=== PATIENT | female | born 1945 | race Caucasian/White ===

== ENCOUNTER 2022-02-23 08:29 | Outpatient (CLI) | payer MEDICARE, SELFPAY ==
--- NOTE | ~2022-02-23 | XR_ITS ---
EXAMINATION: XR lg joint inject/asp w image DATE: 02/23/2022 09:35 INDICATION: Left hip pain TECHNIQUE: A time-out was performed to verify the patient's name, date of , and procedure to b e performed. The procedure including the risks, benefits, and alternatives was discussed with the pat ient. Risks discussed included bleeding and infection. The patient understood the risks and agreed to proceed. The skin overlying the left hip joint was prepped and draped in usual sterile fashion. An esthetic was administered with 1% lidocaine subcutaneously. A 22 G needle was advanced under fluoros copic guidance into the joint. Due to patient's reported contrast allergy a small amount of air was i njected into the joint space confirming intra-articular needle position. Subsequently, injectate cons isting of 7 mm of a 5:2 mixture of 1% lidocaine: 10 mg/mL Kenalog for a total dose of 20 mg Kenalog w as instilled. The needle was removed and the entry site was cleaned and dressed. There were no immed iate complications. Fluoroscopy exposure time was 0.1 minutes. The total number of images was 2. FINDINGS: Real-time fluoroscopy demonstrates the needle in the left hip joint. Patient's pain prior t o procedure:05/25. Patient's pain following the procedure: 04/24. IMPRESSION: 1. Successful left hip joint injection of local anesthetic and steroid with minimal decrease in the p atient's presenting pain. Reviewed, dictated and finalized at location A. IMPRESSION: 1. Successful left hip joint injection of local anesthetic and steroid with min imal decrease in the patient's presenting pain.
== END 2022-02-23 08:30 | disposition home or self-care (01) ==
PROVIDERS: PCP Internal Medicine; Visit Provider Nurse Practitioner
DX: M25.552 Pain in left hip (principal)
CPT/HCPCS: 20610; 77002; J3301; Q9966

== ENCOUNTER → 2022-04-01 16:10 | Outpatient (CLI) | payer MEDICARE, SELFPAY ==
--- NOTE | ~2022-04-01 | MR_ITS ---
EXAMINATION: MR lumbar spine wo con DATE: 04/01/2022 16:46 INDICATION: Low back pain, unspecified. TECHNIQUE: Magnetic resonance imaging (MRI) of the lumbar spine was performed without intravenous con trast. Sequences included sagittal T2-weighted FSE, sagittal T2-weighted FS FSE, sagittal T1-weighted FSE, and axial T2-weighted FSE. COMPARISON: Lumbar spine radiographs 03/23/2022 FINDINGS: There is 23 degrees levoscoliosis of lumbar spine. There is 4 mm retrolisthesis of L1 on L2 and 3 mm retrolisthesis of L2 on L3 and L3 on L4. Vertebral body heights are normal. There is severe ly decreased disc height from T10-T11 through L2-L3, moderately decreased disc height at L3-L4 and L4 -L5, and severely decreased disc height at L5-S1 with endplate remodeling. There is interbody fusion at T12-L1. The distal spinal cord signal intensity is normal. The conus medullaris is at T12-L1. The following disc levels are specifically discussed: L1-L2: There is a right foraminal protrusion. There is mild bilateral facet joint osteoarthritis. The re is moderate right and mild left neural foraminal stenosis. There is mild central canal stenosis. L2-L3: The disc is bulging. There is moderate bilateral facet joint osteoarthritis. There is moderate right and mild left neural foraminal stenosis. There is mild central canal stenosis. L3-L4: The disc is bulging. There is mild right and severe left facet joint osteoarthritis. There is mild bilateral neural foraminal stenosis. There is mild central canal stenosis. L4-L5: The disc is bulging. There is severe bilateral facet joint osteoarthritis. There is mild bilat eral neural foraminal stenosis. There is mild central canal stenosis. L5-S1: The disc is bulging. There is severe bilateral facet joint osteoarthritis. There is mild bilat eral neural foraminal stenosis. There is mild central canal stenosis. IMPRESSION: 1. Severe lumbar spondylosis. 2. Lumbar levoscoliosis. Reviewed, dictated and finalized at location B.
== END ==
PROVIDERS: PCP Internal Medicine; Visit Provider Nurse Practitioner
DX: M47.896 Other spondylosis, lumbar region (principal)
CPT/HCPCS: 72148

== ENCOUNTER 2024-03-30 08:53 | Outpatient (CLI) | payer MEDICARE, SELFPAY ==
--- NOTE | ~2024-03-30 | MR_ITS ---
Procedure: MR thoracic spine wo con Ordering provider: Willy Nielsen, History: . chronic mid-back pain worsening last 3wks, T12-L1 fusion, . Comparison: None. Technique: MRI thoracic spine without contrast. FINDINGS: SPINAL CORD: Normal. VERTEBRAL BODIES: Normal height and alignment. No compression fracture. Normal marrow signal. Levosco liosis of the thoracolumbar area. Kyphosis is seen in the upper thoracic area. Fusion is seen of the level of T12-L1.. Hemangioma is seen T 5. Retrolisthesis seen at the level of L1-L2. DISK SPACES: Degenerative disc disease seen at all levels. Disc bulges are seen at the levels of T3-T4, T6-T7, T7-T8, T8-T9, T9-T10, T10-T11 and T11-T12. Disc b ulge also seen at the level of L1 and L2 on, L2-L3, L3-L4, L4-L5 and L5-S1. STENOSIS: None. PARASPINOUS SOFT TISSUES: Normal. IMPRESSION: No compression fracture or stenosis of the thoracic spine. Multilevel degenerative disc disease. Reviewed, dictated and finalized at location A.
--- NOTE | ~2024-03-30 | MR_ITS ---
EXAMINATION: MR cervical spine wo con DATE: 03/30/2024 10:40 INDICATION: Chronic mid back pain. Neck pain. Right arm pain. TECHNIQUE: Magnetic resonance imaging (MRI) of the cervical spine was performed without intravenous c ontrast. COMPARISON: None FINDINGS: There is 2 mm anterolisthesis of C7 on T1. Vertebral body heights are normal in cervical sp ine. There are changes of anterior fusion procedure from C3 to C7 with interbody bone graft and anter ior plate and screws. There is mildly decreased disc height at C7-T1. The spinal cord signal intensit y is normal. The following disc levels are specifically discussed: C2-C3: The disc does not extend beyond the endplate margin. There is no uncovertebral joint osteoarth ritis. There is ankylosis of the facet joints without hypertrophy. There is no neural foraminal steno sis. There is no central canal stenosis. C3-C4: There is mild bilateral uncovertebral joint hypertrophy. There is ankylosis of the facet joint s with mild hypertrophy. There is mild bilateral neural foraminal stenosis. There is no central canal stenosis. C4-C5: There is no uncovertebral joint hypertrophy. There is ankylosis of the facet joint without hyp ertrophy. There is no neural foraminal stenosis. There is no central canal stenosis. C5-C6: There is mild bilateral uncovertebral joint hypertrophy. There is ankylosis of the right facet joint without hypertrophy. There is mild bilateral neural foraminal stenosis. There is no central ca nal stenosis. C6-C7: There is severe bilateral uncovertebral joint hypertrophy. There is mild right and moderate le ft facet joint osteoarthritis. There is mild bilateral neural foraminal stenosis. There is mild centr al canal stenosis. C7-T1: The disc does not extend beyond the endplate margin. There is mild bilateral uncovertebral joshua nt osteoarthritis. There is severe bilateral facet joint osteoarthritis. There is mild bilateral neur al foraminal stenosis. There is no central canal stenosis. IMPRESSION: 1. Mild cervical spondylosis. 2. Anterior fusion procedure from C3 to C7. Reviewed, dictated and finalized at location E.
== END 2024-03-30 08:54 ==
LOC: MICIMG 08:54
PROVIDERS: PCP Internal Medicine; Visit Provider Internal Medicine
DX: M47.892 Other spondylosis, cervical region (principal); M51.34 Other intervertebral disc degeneration, thoracic region; Z98.1 Arthrodesis status
CPT/HCPCS: 72141; 72146

== ENCOUNTER 2024-08-27 02:40 | Day surgery (SDC) | payer MEDICARE, SELFPAY ==
[2024-08-14 15:20] VITALS: BMI 23.5
[2024-08-27 11:16] VITALS: BP 180/99; PULSE 92; RESP 20; TEMP 36.4; O2SAT 100
[2024-08-27] MEDS: LACTATED RINGERS 1,000 ML 150 ML IV CONT (11:30)
--- NOTE | 2024-08-27 11:36 | P.PNAN_ITS ---
Anes - Initial Pre Proc Eval Procedure: Operation Date: 08/27/24 12:30 Proposed Procedures p Esophagogastroduodenoscopy - Alon Nick DO Date/Time: 08/27/24 11:36 Surgeon: Alon Nick DO Pre Op Diagnosis: Hiatal Hernia, dysphagia Patient Data Age: 78 Gender: F Height: 1.47 m Weight: 52.2 kg Last Vital Signs Temp 36.4 C L 08/27/24 11:16 Pulse 92 08/27/24 11:16 Resp 20 08/27/24 11:16 BP 180/99 H 08/27/24 11:16 Pulse Ox 100 08/27/24 11:16 O2 Del Method Room Air 08/27/24 11:16 Allergies Allergy/AdvReac Type Severity Reaction Status Date / Time meperidine Allergy Unknown Urticaria Verified 08/27/24 11:15 Penicillins Allergy Unknown Rash Verified 08/27/24 11:15 Sulfa (Sulfonamide Allergy Unknown Urticaria Verified 08/27/24 11:15 Antibiotics) Home Medications Medication Instructions Recorded Confirmed Type spironolactone 100 mg tablet 100 mg PO DAILY 08/24/19 08/27/24 History tramadol 50 mg tablet 50 mg PO Q6H PRN pain #20 tabs 04/04/22 08/27/24 Rx cyclobenzaprine 5 mg tablet 5 mg PO HS 08/09/24 08/27/24 History etanercept 50 mg/mL (1 mL) 50 mg subcut WEEKLY 08/09/24 08/27/24 History subcutaneous syringe (Enbrel) gabapentin 300 mg capsule 600 mg PO HS 08/09/24 08/27/24 History leflunomide 20 mg tablet 20 mg PO DAILY 08/09/24 08/27/24 History acetaminophen 500 mg tablet 1,000 mg PO TID PRN Pain 08/14/24 08/27/24 History cholecalciferol (vitamin D3) 125 125 mcg PO DAILY 08/14/24 08/27/24 History mcg (5,000 unit) capsule Patient hx anesthesia problems: none Family hx anesthesia problems: none Results Review: All pre-operative results and documents have been reviewed as part of the pre- operative evaluation. [facility] Past Medical History Medical History Arthritis Osteoporosis Surgical History Surgical History History of back surgery History of hysterectomy History of knee joint replacement History of neck surgery History of shoulder surgery Family History Family History Mother Family history of osteoporosis Depression Family history of cardiovascular disease, Onset Age: 78 Family history of arthritis, Onset Age: 78 Hypertension Father Family history of cardiovascular disease Cerebrovascular accident Family history of Parkinson's disease, Onset Age: 77 Family history of hearing loss Sibling Asthma Social History Social History Smoking status: Former smoker Alcohol intake: never Substance use: never Substance use type: does not use Do You Feel Safe in your Home?: Yes Lack of Transportation: No Lack of Food: Never True Current Housing: I Have Housing Concerned About Future Housing: No Difficulty Paying Gas/Electric Bills: No Difficulty Paying for Meds: No Currently Unemployed: No Education: Bachelor's Degree Difficulty w/ Childcare or Family Care: No Living arrangements: alone Occupation/Education: retired Spiritual care concerns: No Anes - Eval Final PreProcedure Day of Procedure 08/27/24 11:36 Patient weight: normal Heart: regular rate and rhythm Lungs: clear to auscultation Airway: Mallampati scale class II Neurological: alert and oriented Last oral intake: >/= 8 hours ASA classification: III Emergent: no Anesthetic plan: proceed Anesthesia type and monitoring: general GIVS and standard monitoring Results Review: All pre-operative results and documents have been reviewed as part of the pre- operative evaluation. Informed Consent: The patient's anesthetic plan and its attendant risks and benefits were discussed with the patient/family/POA. Questions were solicited and answers provided to the satisfaction of the patient/family/POA.
--- NOTE | 2024-08-27 11:54 | WPDHPUPDATE1 ---
History and Physical Update Update Date/Time: 08/27/24 11:54 History and Physical has been reviewed, including an updated exam of the patient. There are NO changes in the patient's condition. Risks, benefits, and alternatives have been discussed and questions answered. Patient agrees to proceed with procedure.
[2024-08-27 12:19] VITALS: BP 144/67; PULSE 94; RESP 20; O2SAT 97
[2024-08-27 12:29] VITALS: BP 135/72; PULSE 87; RESP 20; O2SAT 96
[2024-08-27 12:39] VITALS: BP 148/85; PULSE 85; RESP 20; O2SAT 98
== END 2024-08-27 12:56 | disposition home or self-care (01) ==
PROVIDERS: PCP Internal Medicine; Visit Provider Surgery
PROC: 0DJ08ZZ Inspection of Upper Intestinal Tract, Via Natural or Artificial Opening Endoscopic (ICD-10-PCS; CPT 43235; principal; 2024-08-27 12:30)
DX: K22.2 Esophageal obstruction (principal); K44.9 Diaphragmatic hernia without obstruction or gangrene; M81.0 Age-related osteoporosis without current pathological fracture; M06.9 Rheumatoid arthritis, unspecified; Z79.891 Long term (current) use of opiate analgesic; Z98.890 Other specified postprocedural states; Z98.1 Arthrodesis status; Z87.891 Personal history of nicotine dependence; Z82.49 Family history of ischemic heart disease and other diseases of the circulatory system
CPT/HCPCS: 43249; C1726; J2704; J7120

== ENCOUNTER 2024-09-18 15:16 | Outpatient (CLI) | payer MEDICARE, SELFPAY ==
[2024-09-18 16:15] LABS: Anion Gap 5 mmol/L (4-12); Blood Urea Nitrogen 26 mg/dL (7-17); Calcium 9.2 mg/dL (8.4-10.2); Carbon Dioxide 26 mmol/L (22-30); Chloride 105 mmol/L (98-107); Estimated Glomerular Filt Rate 34; Glucose 72 mg/dL (65-110); Potassium 4.3 mmol/L (3.4-5.0); Sodium 136 mmol/L (137-145)
== END 2024-09-18 15:17 | disposition home or self-care (01) ==
LOC: ANHSURGERY 15:20
PROVIDERS: Anesthesiology; PCP Internal Medicine; Visit Provider Surgery
DX: K43.9 Ventral hernia without obstruction or gangrene (principal); Z79.899 Other long term (current) drug therapy
CPT/HCPCS: 36415; 80048; 86850; 86900; 86901

== ENCOUNTER 2024-09-25 01:27 | Day surgery (SDC) | payer MEDICARE, SELFPAY ==
--- NOTE | 2024-09-16 11:04 | PC.NURSE ---
Report to the Outpatient Waiting Room, entrance under the green pavilion located off [facility], at time __7:30 am on date _09/25/24 . Planned Procedure Time: _9:30 am .? Time changes happen often and if your time is changed the preop area will call you the afternoon before. - You and your visitor will be asked to self-screen and do not enter if you have any COVID symptoms. Please call surgeon if you need to reschedule. - A mask is optional within the hospital at this time. Patients may have clear liquids (water, carbonated beverages, clear teas, apple juice) until 3 hours prior to surgery(4:30 am) with a maximum of 20 ounces. - No food from midnight until time of surgery and no smoking. This includes no chewing gum, candy or mints. - Infants may have breast milk until 4 hours before surgery, infant formula 6 hours prior to surgery. - Children will be allowed to drink immediately following surgery.? If applicable, please bring a bottle or sippy cup to assist with drinking. Juice, water, soda, and popsicles are readily available.? For infants on formula, please bring formula the day of surgery.? Pacifiers are allowed. Take only the following medications with a SIP of water on the morning of surgery: _NONE DO NOT STOP ANY OF YOUR OTHER PRESCRIPTION MEDICATIONS PRIOR TO SURGERY EXCEPT THE FOLLOWING Medications to discontinue per physician ___HOLD ALL VITAMINS AND SUPPLEMENTS 3 DAYS PRE OP .LAST DOSE 09/21/24 Please no make-up, nail thai, hairspray, perfume, deodorant, or body powder the day of surgery.? No jewelry (including any body piercings) or valuables the day of surgery, leave them at home.? Please take a shower or bath the night before, or the morning of, surgery with an antibacterial soap.? Wear comfortable, loose fitting clothing.? Children are encouraged to wear pajamas. - Jewelry must be removed prior to entering the operating room.? Rings and piercings that are not removed may be cut off. - The hospital will not accept responsibility for valuables.? - Please leave all valuables, including medications, at home the day of surgery. If you are going home after surgery, a licensed entry driver operator must drive you home.? - NO public transportation without another adult if you receive anesthesia. - We recommend that an adult stay with you for 24 hours following discharge. - We also recommend that you do not drive, make important decision, drink alcoholic beverages, or take any drugs that were not prescribed by your health care provider for at least 24 hours after your discharge time. For Pediatric surgeries, we recommend two adults accompany the child home. Follow any additional instructions given to you from your surgeon. Telephone instructions given to __PATIENT and asked if any additional questions and then verbalized understanding. Patient advised to call surgeon office or pre surgery nurse liaison [phone] if any additional questions.
[2024-09-16 11:28] VITALS: BMI 21.4
[2024-09-25] VITALS (13 sets, daily range): BP systolic 121–155; BP diastolic 62–99; PULSE 88–99; RESP 12–22; TEMP 36.4–36.6; O2SAT 92–100; BMI 23.1
[2024-09-25] MEDS: LACTATED RINGERS 1,000 ML 30 ML IV CONT ×2 (08:00→11:00)
[2024-09-25] MEDS: KETOROLAC 15 MG/ML VIAL (*BKC) IV PUSH ×2 (08:16→11:47)
[2024-09-25] MEDS: ACETAMINOPHEN 500 MG TABLET 1000 MG PO (08:16)
--- NOTE | 2024-09-25 09:11 | WPDHPUPDATE1 ---
History and Physical Update Update Date/Time: 09/25/24 09:11 History and Physical has been reviewed, including an updated exam of the patient. There are NO changes in the patient's condition. Risks, benefits, and alternatives have been discussed and questions answered. Patient agrees to proceed with procedure.
--- NOTE | 2024-09-25 09:11 | PM.IMHP ---
H&P: HPI History of Present Illness Date/Time: 09/25/24 09:11 Chief Complaint: Right spigelian hernia Narrative: This is a 79-year-old woman who presents for right spigelian hernia repair. She was found to have a hernia in the right lower quadrant and CT had previously been performed. This showed evidence a hernia containing bowel. She now presents for repair. She reports no significant changes since last seen in the office. Review of Systems Review of Systems: All systems reviewed & are unremarkable except as noted in HPI and below Constitutional: Constitutional: Denies chills, Denies fever(s), Denies headache(s) and Denies weight loss Eyes: Eyes: Denies change in vision ENT: Denies dizziness, Denies headache(s), Denies neck mass and Denies throat swelling Cardiovascular: Cardiovascular: Denies chest pain, Denies lightheadedness and Denies dyspnea Respiratory: Respiratory: Denies cough, Denies dyspnea and Denies wheezing Gastrointestinal: Gastrointestinal: Denies abdominal pain, Denies change in bowel habits, Denies nausea and Denies vomiting Genitourinary: Genitourinary: Denies hematuria and Denies dysuria Musculoskeletal: Musculoskeletal: Reports as per HPI Integumentary/Breasts: Skin/Breast: Reports as per HPI Neurologic: Denies dizziness and Denies headache(s) Allergic/Immunologic: Allergic/Immunologic: Denies throat swelling and Denies wheezing PMFSH Past Medical History Medical History Arthritis Osteoporosis Surgical History Surgical History History of back surgery History of hysterectomy History of knee joint replacement History of neck surgery History of shoulder surgery Family History Family History Mother Family history of osteoporosis Depression Family history of cardiovascular disease, Onset Age: 78 Family history of arthritis, Onset Age: 78 Hypertension Father Family history of cardiovascular disease Cerebrovascular accident Family history of Parkinson's disease, Onset Age: 77 Family history of hearing loss Sibling Asthma Social History Social History Smoking status: Former smoker Alcohol intake: current Substance use: never Substance use type: does not use Do You Feel Safe in your Home?: Yes Lack of Transportation: No Lack of Food: Never True Current Housing: I Have Housing Concerned About Future Housing: No Difficulty Paying Gas/Electric Bills: No Difficulty Paying for Meds: No Currently Unemployed: No Education: Bachelor's Degree Difficulty w/ Childcare or Family Care: No Living arrangements: alone Occupation/Education: retired Spiritual care concerns: No Meds Home Medications and Allergies Home Medications ?Medication ?Instructions ?Recorded ?Confirmed ?Type spironolactone 100 mg tablet 100 mg PO DAILY 08/24/19 09/16/24 History tramadol 50 mg tablet 50 mg PO Q6H PRN pain #20 tabs 04/04/22 09/16/24 Rx cyclobenzaprine 5 mg tablet 5 mg PO HS 08/09/24 09/16/24 History etanercept 50 mg/mL (1 mL) 50 mg subcut WEEKLY 08/09/24 09/16/24 History subcutaneous syringe (Enbrel) gabapentin 300 mg capsule 600 mg PO HS 08/09/24 09/16/24 History leflunomide 20 mg tablet 20 mg PO DAILY 08/09/24 09/16/24 History acetaminophen 500 mg tablet 1,000 mg PO TID PRN Pain 08/14/24 09/16/24 History cholecalciferol (vitamin D3) 125 125 mcg PO DAILY 08/14/24 09/25/24 History mcg (5,000 unit) capsule omeprazole 20 mg capsule,delayed 20 mg PO DAILY #90 caps 08/27/24 09/16/24 Rx release Allergies Allergy/AdvReac Type Severity Reaction Status Date / Time meperidine Allergy Unknown Urticaria Verified 09/25/24 07:49 Penicillins Allergy Unknown Rash Verified 09/25/24 07:49 Sulfa (Sulfonamide Allergy Unknown Urticaria Verified 09/25/24 07:49 Antibiotics) iohexol (From contrast - CT, AdvReac Rash Verified 09/25/24 07:49 X-RAY) Exam Const: General: no acute distress and alert Orientation/consciousness: patient oriented x3 HENMT: Head: normocephalic and atraumatic Ears: hearing grossly normal bilaterally Face/Nose/Sinus: Normal nares present Mouth: Yes Normal oral and palatal mucosa present Eyes: Periorbital: periorbital findings normal Sclera: sclerae normal EOM: EOMs intact bilaterally Neck: Neck: normal visual inspection, no lymphadenopathy and trachea midline Chest: Chest palpation & inspection: normal inspection of the chest Resp: Effort & Inspection: normal respiratory effort Auscultation: clear to auscultation bilaterally Cardio: Jugular venous distension: no JVD Rate: regular rate Rhythm: regular rhythm Heart sounds: S1 normal heart sound present and S2 normal heart sound present Peripheral pulses: Peripheral pulses 2+ throughout GI: Inspection: normal to inspection GI Palp: Yes Soft to palpation, No Tenderness to palpation present (GI), No Guarding due to palpation present (GI), Yes Hernia present ventral 3-10 cm and No Rebound tenderness present Percussion: Yes normal to percussion Auscultation: normal bowel sounds : General: Yes no CVA tenderness Back/Spine/Pelvis: Back: no CVA tenderness Neuro: General: patient oriented x3, no focal motor deficits and CN's II-XI intact bilaterally Cognition (Neuro): normal cognition Speech: normal speech Motor exam (neuro): 5/5 motor strength present throughout Extrem: General: capillary refill normal and no clubbing, cyanosis or edema Assessment and Plan Assessment and plan (1) Spigelian hernia: Code(s): K43.9 - Ventral hernia without obstruction or gangrene Status: Acute Assessment and Plan: I have recommended laparoscopic right spigelian hernia repair with mesh, da Daimr assisted. I have discussed the procedure, risks, benefits, and alternatives with the patient. All questions answered. No changes since last seen in office.
--- NOTE | 2024-09-25 09:28 | P.PNAN_ITS ---
Anes - Initial Pre Proc Eval Procedure: Operation Date: 09/25/24 09:30 Proposed Procedures p Laparoscopic Right Spigelian Hernia Repair with Mesh, Davinci Assisted - Alon Nick DO Date/Time: 09/25/24 09:28 Surgeon: Alon Nick DO Pre Op Diagnosis: Rt Spigelian, (Ventral ) Hernia 3 cm Patient Data Age: 79 Gender: F Height: 1.5 m Weight: 51.8 kg Last Vital Signs Temp 97.9 F 09/25/24 07:30 Pulse 90 09/25/24 07:30 Resp 16 09/25/24 07:30 BP 136/74 09/25/24 07:30 Pulse Ox 98 09/25/24 07:30 O2 Del Method Room Air 09/25/24 07:30 Allergies Allergy/AdvReac Type Severity Reaction Status Date / Time meperidine Allergy Unknown Urticaria Verified 09/25/24 07:49 Penicillins Allergy Unknown Rash Verified 09/25/24 07:49 Sulfa (Sulfonamide Allergy Unknown Urticaria Verified 09/25/24 07:49 Antibiotics) iohexol (From contrast - CT, AdvReac Rash Verified 09/25/24 07:49 X-RAY) Home Medications ?Medication ?Instructions ?Recorded ?Confirmed ?Type spironolactone 100 mg tablet 100 mg PO DAILY 08/24/19 09/16/24 History tramadol 50 mg tablet 50 mg PO Q6H PRN pain #20 tabs 04/04/22 09/16/24 Rx cyclobenzaprine 5 mg tablet 5 mg PO HS 08/09/24 09/16/24 History etanercept 50 mg/mL (1 mL) 50 mg subcut WEEKLY 08/09/24 09/16/24 History subcutaneous syringe (Enbrel) gabapentin 300 mg capsule 600 mg PO HS 08/09/24 09/16/24 History leflunomide 20 mg tablet 20 mg PO DAILY 08/09/24 09/16/24 History acetaminophen 500 mg tablet 1,000 mg PO TID PRN Pain 08/14/24 09/16/24 History cholecalciferol (vitamin D3) 125 125 mcg PO DAILY 08/14/24 09/25/24 History mcg (5,000 unit) capsule omeprazole 20 mg capsule,delayed 20 mg PO DAILY #90 caps 08/27/24 09/16/24 Rx release Patient hx anesthesia problems: post op nausea/vomiting Family hx anesthesia problems: none Results Review: All pre-operative results and documents have been reviewed as part of the pre-operative evaluation. [facility] Past Medical History Medical History Arthritis Osteoporosis Surgical History Surgical History History of back surgery History of hysterectomy History of knee joint replacement History of neck surgery History of shoulder surgery Family History Family History Mother Family history of osteoporosis Depression Family history of cardiovascular disease, Onset Age: 78 Family history of arthritis, Onset Age: 78 Hypertension Father Family history of cardiovascular disease Cerebrovascular accident Family history of Parkinson's disease, Onset Age: 77 Family history of hearing loss Sibling Asthma Social History Social History Smoking status: Former smoker Alcohol intake: current Substance use: never Substance use type: does not use Do You Feel Safe in your Home?: Yes Lack of Transportation: No Lack of Food: Never True Current Housing: I Have Housing Concerned About Future Housing: No Difficulty Paying Gas/Electric Bills: No Difficulty Paying for Meds: No Currently Unemployed: No Education: Bachelor's Degree Difficulty w/ Childcare or Family Care: No Living arrangements: alone Occupation/Education: retired Spiritual care concerns: No Anes - Eval Final PreProcedure Day of Procedure 09/25/24 09:28 Patient weight: normal Heart: regular rate and rhythm Lungs: clear to auscultation Airway: Mallampati scale class II Neurological: alert and oriented Last oral intake: >/= 8 hours ASA classification: III Emergent: no Anesthetic plan: proceed Anesthesia type and monitoring: general Results Review: All pre-operative results and documents have been reviewed as part of the pre- operative evaluation. Informed Consent: The patient's anesthetic plan and its attendant risks and benefits were discussed with the patient/family/POA. Questions were solicited and answers prov ided to the satisfaction of the patient/family/POA.
[2024-09-25] MEDS: ceFAZolin 2 GM/D5W 50 ML 2 GM/50 ML BAG IVPB (09:39)
[2024-09-25] MEDS: BUPIVACAINE/EPINEPHRINE 0.5% 30 ML VIAL INFILTRATE (10:11)
--- NOTE | 2024-09-25 10:57 | P.OP_ITS ---
Procedure Note - Detailed Date of Procedure 09/25/24 Pre-op Diagnosis Right spigelian hernia Post-op Diagnosis Same (3 cm right spigelian hernia) Procedure Performed Laparoscopic 3 cm right spigelian hernia repair with mesh, da Damir assisted Surgeon Alon Nick DO Anesthesia General and Local (0.5% bupivacaine with epinephrine) Indications This is a 79-year-old woman who presented with a bulge in her right lower quadrant. She had noticed some gushing noises coming from the bulge and did have some occasional discomfort. A CT of her abdomen and pelvis had been performed at an outside facility. She was found have a right spigelian hernia containing a portion of colon. Discussions were made with the patient about treatment options and decision was made to proceed with robotic assisted laparoscopic right spigelian hernia repair with mesh. Findings Robotic assisted laparoscopic 3 cm right spigelian hernia repair was performed. The patient was found to have a 3 cm spigelian hernia and the right lower quadrant. The cecum was close to this area but did not appear to be incarcerated within the hernia. A robotic transabdominal preperitoneal approach was utilized for repair. A preperitoneal pocket was developed and this was extended all the way down into the inguinal region to allow for wide enough overlap. The hernia defect was closed using 2 0 V lock running absorbable suture. A large right 3DMax mid mesh was then placed extending down into the right myopectineal orifice. This was placed with adequate overlap circumferentially around the hernia defect. The peritoneum was then closed over the mesh. Description of Procedure Procedure as well as risks, benefits, and alternatives were discussed with the patient. Written consent was obtained and placed in chart prior to procedure. Patient was brought back to surgical suite. She was placed supine on operating table. Time-out was done to confirm patient and procedure. She was then intubated by Anesthesia Department. Her abdomen was prepped and draped in sterile fashion using chlorhexidine prep. 0.5% bupivacaine with epinephrine was infiltrated at each location for incision. An 8 mm incision was made in the left lateral abdomen, and a 5 mm Optiview trocar was advanced through the abdominal layers under direct visualization. Once inside the abdominal cavity, carbon dioxide insufflation was used to create a pneumoperitoneum. A camera was inserted and the abdominal cavity was inspected. The patient was placed in slight Trendelenburg position. An 8 millimeter incision was made on the right lateral abdomen and an 8 millimeter trocar was inserted under direct visualization. Another 8 millimeter incision was made just superior to the umbilicus and an 8 millimeter trocar was inserted under direct visualization. The 5 mm port was then removed and this was replaced with another 8 mm robotic port. The robotic arms were brought up to the patient's bedside and secured to the ports. The camera and instruments were inserted. I then moved over to the robotic console and took control of the camera and instruments. After careful inspection of the abdominal cavity, I began scoring the peritoneum along the r ight lower quadrant using scissors with electrocautery. The preperitoneal plane was entered and this was carefully dissected caudally along the inferior epigastric vessels. Careful dissection with scissors with electrocautery and blunt dissection was used to continue this dissection. I dissected far enough laterally to allow for mesh placement, and also dissected medially to identify the pubic arch and Jared's ligament. The hernia sac was identified and carefully dissected posteriorly. The round ligament was also identified and the peritoneum was carefully dissected far enough posteriorly to allow for mesh placement. The hernia defect measured 3 cm. Once an adequate pocket was created, the hernia defect was closed using 2 0 V lock running absorbable suture. I then placed the mesh within the preperitoneal pocket and carefully unfolded it. The mesh was centered on the hernia defect with adequate overlap circumferentially. The inferior edge of the mesh was inspected to ensure that it was far enough away from the peritoneal edge. The mesh appeared in proper position overlying the entire myopectineal orifice with adequate overlap around the hernia defect. The mesh was secured using 3-0 Vicryl simple interrupted sutures in Jared's ligament, the superior medial edge, and superior lateral edge of the mesh. The peritoneum was then closed over the mesh using a 3-0 V- lock running absorbable suture. The robotic instruments were removed. The robotic arms were disengaged from the ports and moved away from the bedside. The patient was flattened out in bed, the ports were removed under direct visualization, and the pneumoperitoneum was released. The skin of the incisions was approximated using 4-0 Monocryl subcuticular suture, and Exofin glue was applied on top. The patient was awakened from anesthesia, extubated, and transferred to recovery. Implants Large right 3DMax mid mesh Estimated Blood Loss 5 Complications No immediate complications Condition Stable Disposition Same day [facility] Billing Surgery - Charge Forward: Surgery Billing
[2024-09-25] MEDS: fentaNYL CITRATE INJ (*CRX) 100 MCG/2 ML VIAL 25 MCG IV PUSH ×2 (11:25→11:28)
== END 2024-09-25 13:48 | disposition home or self-care (01) ==
PROVIDERS: PCP Internal Medicine; Visit Provider Surgery
PROC: (CPT 49593; principal; 2024-09-25 09:30)
DX: K43.9 Ventral hernia without obstruction or gangrene (principal); M81.0 Age-related osteoporosis without current pathological fracture; M19.90 Unspecified osteoarthritis, unspecified site; Z79.891 Long term (current) use of opiate analgesic; Z79.899 Other long term (current) drug therapy; Z98.890 Other specified postprocedural states; Z98.1 Arthrodesis status; Z87.891 Personal history of nicotine dependence; Z82.49 Family history of ischemic heart disease and other diseases of the circulatory system
CPT/HCPCS: 49593; S2900; A9270; C1781; J0690; J1100; J1885; J2003; J2405; J2704; J3010; J7120

== ENCOUNTER 2025-01-01 14:36 | Outpatient (CLI) | payer MEDICARE, SELFPAY ==
--- NOTE | ~2025-01-01 | US_ITS ---
EXAM: RENAL ULTRASOUND HISTORY: Renal function tests outside ref range COMPARISON: Reference is made to a CT examination performed on 07/08/2024. FINDINGS: RIGHT KIDNEY: 7.9 x 3.1 x 4.3 cm. The parenchyma of the right kidney is increased in echogenicity. No hydronephrosis or bulky renal calculi. LEFT KIDNEY: 8.8 x 3.8 x 3.5 cm No hydronephrosis or renal calculi. The parenchyma of the left kidney is increased in echogenicity. BLADDER: Distended and otherwise unremarkable.. IMPRESSION: No hydronephrosis or renal calculi. Findings suggesting medical renal disease. Reviewed, dictated and finalized at location A.
== END 2025-01-01 14:37 | disposition home or self-care (01) ==
LOC: MICIMG 14:37
PROVIDERS: PCP Internal Medicine; Visit Provider Internal Medicine
DX: R94.4 Abnormal results of kidney function studies (principal)
CPT/HCPCS: 76775

== ENCOUNTER 2025-01-23 15:44 | Outpatient (CLI) | payer MEDICARE, SELFPAY ==
--- NOTE | ~2025-01-23 | XR_ITS ---
PA, oblique, and lateral views of the right third finger CLINICAL HISTORY: Cellulitis FINDINGS: No acute fracture or dislocation seen. There is severe degenerative change of the third and fourth DIP joints. There is severe degenerative change of the third MCP joint. There is moderate deg enerative change of the third PIP joint. Soft tissues are unremarkable. IMPRESSION: Severe osteoarthritic changes, as above. Reviewed, dictated and finalized at location M.
--- NOTE | ~2025-01-23 | XR_ITS ---
Cervical Spine: AP, lateral, open-mouth views Clinical History: Cervicalgia Findings: There is extensive anterior and interbody fusion extending from C3 through C7. There is mod erate to advanced facet arthropathy throughout the cervical spine.. Pre-vertebral soft tissues are un remarkable. Impression: Extensive anterior and interbody fusion, as above. Extensive facet arthropathy. Reviewed, dictated and finalized at location . Impression: Extensive anterior and interbody fusion, as above. Extensive facet arthropathy.
== END 2025-01-23 15:45 | disposition home or self-care (01) ==
LOC: MICIMG 15:45
PROVIDERS: PCP Internal Medicine; Visit Provider Internal Medicine
DX: L03.011 Cellulitis of right finger (principal); M19.041 Primary osteoarthritis, right hand; M47.892 Other spondylosis, cervical region; M43.22 Fusion of spine, cervical region
CPT/HCPCS: 72040; 73140

== ENCOUNTER 2025-01-30 15:39 | Outpatient (CLI) | payer MEDICARE, SELFPAY ==
--- NOTE | ~2025-01-30 | XR_ITS ---
XR shoulder RT min 2V Ordering provider: Willy Nielsen, History: . Pain in right shoulder . Comparison: None. FINDINGS: BONES: Possible fracture in the superior aspect of the glenoid cavity. Otherwise, No acute fracture o r dislocation. Bone formation seen superior to the acromioclavicular joint which may be post traumati c or degenerative. JOINT SPACES: The acromioclavicular joint is normal. The glenohumeral joint shows severe narrowing wi th atherosclerotic changes. SOFT TISSUES: Ossification the area of the supraspinatous tendon insertion is noted. IMPRESSION: Fracture of the superior endplate of the glenoid cavity. Clinical correlation advised. Otherwise, No acute osseous abnormality right shoulder. Severe osteoarthritic changes of the glenohumeral joint. Reviewed, dictated and finalized at location A. IMPRESSION: Fracture of the superior endplate of the glenoid cavity. Clinical correlation a dvised. Otherwise, No acute osseous abnormality right shoulder. Severe osteoarthritic changes of the glenohumeral joint.
== END 2025-01-30 15:40 | disposition home or self-care (01) ==
LOC: MICIMG 15:40
PROVIDERS: PCP Internal Medicine; Visit Provider Internal Medicine
DX: S42.141A Displaced fracture of glenoid cavity of scapula, right shoulder, initial encounter for closed fracture (principal); M19.011 Primary osteoarthritis, right shoulder; X58.XXXA Exposure to other specified factors, initial encounter
CPT/HCPCS: 73030

== ENCOUNTER 2025-02-07 10:42 | Outpatient (CLI) | payer MEDICARE, SELFPAY ==
--- NOTE | ~2025-02-07 | CT_ITS ---
Non-contrast Head CT History: Head injury Technique: Axial non-contrast imaging of the brain was performed. Dose reduction technique was used on this scan by utilizing automated exposure control and iterative reconstruction technique. The dose -length product (DLP) was 599.57 mGy-cm. Findings: There is no evidence of intracranial hemorrhage, mass lesion, or acute infarct. Brain par enchyma appears normal. The ventricles and subarachnoid spaces are normal in size. The calvarium ap pears normal. The visualized paranasal sinuses and mastoid air cells are clear. Impression: No significant abnormality seen. Reviewed, dictated and finalized at location . Impression: No significant abnormality seen.
--- NOTE | ~2025-02-07 | CT_ITS ---
Noncontrast CT scan of the cervical spine Technique: Multiple contiguous axial [address] images of the cervical spine were obtained and rec onstructed in 2D sagittal and coronal planes on the acquisition scanner. Dose reduction technique was used on this scan by utilizing automated exposure control, adjustment of the mA and/or kV according to patient size. The dose-length product (DLP) was 137.26 mGy-cm. Clinical History: Pain, injury Findings: No acute fracture identified. There is anterior interbody fusion from C3 through C7. There is 4 mm anterolisthesis of C7 over T1. There is 3 mm anterolisthesis of T1 over T2. There is severe d egenerative disc narrowing at T1-T2. There is severe degenerative disc narrowing at C6-C7. There is a dvanced degenerative change at the articulation of the odontoid process with the anterior arch of C1. There is bilateral neural foraminal narrowing at C6-C7. No prevertebral soft tissue swelling. Impression: No acute fracture. 4 mm anterolisthesis of C7 over T1. 3 mm anterolisthesis of T1 over T2. Anterior and interbody fusion from C3 through C7, as detailed above. Degenerative changes, as above. Reviewed, dictated and finalized at location . Impression: No acute fracture. 4 mm anterolisthesis of C7 over T1. 3 mm anterolisthesis of T1 over T2. Anterior and interbody fusion from C3 through C7, as detailed above. Degenerative changes, as above.
== END 2025-02-07 10:43 | disposition home or self-care (01) ==
LOC: MICIMG 10:43
PROVIDERS: PCP Internal Medicine; Visit Provider Internal Medicine
DX: S09.90XA Unspecified injury of head, initial encounter (principal); X58.XXXA Exposure to other specified factors, initial encounter; M50.30 Other cervical disc degeneration, unspecified cervical region; Z98.1 Arthrodesis status
CPT/HCPCS: 70450; 72125